=== PATIENT | female | born 1985 | race African-American/Black ===

== ENCOUNTER 2022-07-05 06:16 | Day surgery (SDC) | payer SELFPAY ==
[2022-06-29 16:18] VITALS: BMI 30.9
[2022-07-05] MEDS ORDERED: ACETAMINOPHEN 325 MG TABLET (FP) PO PRN (06:30)
[2022-07-05] MEDS ORDERED: ONDANSETRON 4 MG/2 ML VIAL IVPUSH PRN ×2 (06:30→15:15)
[2022-07-05] MEDS ORDERED: LACTATED RINGERS SOLUTION 1,000 ML IV SCH ×2 (06:30→15:15)
[2022-07-05] MEDS ORDERED: DOCUSATE SODIUM 100 MG CAPSULE (FP) PO PRN (06:33)
[2022-07-05] MEDS ORDERED: LIDOCAINE HCL 1%, 10 MG/ML (20ML VIAL) ONE ×2 (07:09→07:25)
[2022-07-05] MEDS ORDERED: EPINEPHrine/PF 1 MG/1 ML (1:1,000) AMPULE ONE (07:09)
[2022-07-05] MEDS ORDERED: BUPIVACAINE HCL/PF 2.5 MG/ML - 30 ML VIAL IJ ONE ×2 (07:09→07:25)
[2022-07-05] MEDS ORDERED: BACITRACIN 15 GM TUBE TOPICAL OINTMENT ONE (07:10)
[2022-07-05] MEDS ORDERED: HYDROmorphone HCL/PF 1 MG/ML VIAL ONE (07:15)
[2022-07-05] MEDS ORDERED: ROCURONIUM BROMIDE 50 MG/5 ML SYRINGE ONE ×4 (07:15→12:34)
[2022-07-05] MEDS ORDERED: PROPOFOL 20 ML ONE (07:15)
[2022-07-05] MEDS ORDERED: MIDAZOLAM HCL 2 MG/2 ML SINGLE DOSE VIAL ONE (07:15)
[2022-07-05] MEDS ORDERED: ONDANSETRON 4 MG/2 ML VIAL ONE (09:13)
[2022-07-05] MEDS ORDERED: KETOROLAC TROMETHAMINE 30 MG/1 ML VIAL ONE (09:13)
[2022-07-05] MEDS ORDERED: SODIUM CHLORIDE 0.9% P/F 10 ML VIAL IJ ONE (09:13)
[2022-07-05] MEDS ORDERED: ceFAZolin SODIUM 1 GM VIAL ONE (09:13)
[2022-07-05] MEDS ORDERED: DEXAMETHASONE SOD PHOSPHATE 4 MG/1 ML VIAL ONE (09:13)
[2022-07-05] MEDS ORDERED: GUM MASTIC/STORAX/MSAL/ALCOHOL 1 DRP DROPSBTL MC ONE (14:38)
[2022-07-05] MEDS ORDERED: ACETAMINOPHEN INJECTION 100 ML IVPB ONE (15:11)
[2022-07-05] MEDS ORDERED: ACETAMINOPHEN 1000 MG/100 ML BAG IVPB ONE (15:15)
[2022-07-05] MEDS: HYDROmorphone HCl 2 MG/ML VIAL IVPB PRN (21:27)
[2022-07-05] MEDS: CEFAZOLIN 1 GM in DEXTROSE 5%-WATER - 50 ML IVPB SCH (22:00)
[2022-07-06] MEDS: CEFAZOLIN 1 GM in DEXTROSE 5%-WATER - 50 ML IVPB SCH ×2 (03:00→08:04)
[2022-07-06] MEDS: oxyCODONE HCL 5 MG TABLET PO PRN ×2 (03:40→09:49)
[2022-07-06] MEDS: HYDROmorphone HCl 2 MG/ML VIAL IVPB PRN (07:02)
[2022-07-06] MEDS ORDERED: ENOXAPARIN NA (PORCINE) 40 MG/0.4 ML DISP.SYRIN SQ ONE (07:46)
[2022-07-06] MEDS: DOXYCYCLINE HYCLATE 100 MG CAPSULE PO SCH ×2 (08:04→09:49)
[2022-07-06 10:31] VITALS: BP 120/70; PULSE 84; RESP 13; TEMP 99.1
== END 2022-07-06 11:22 | disposition home or self-care (01) ==
LOC: FASU 06:16 → FM/S 16:49 → FASU 07-06 11:22
PROVIDERS: ATTEND Surgery
CPT/HCPCS: 81025; 94760